=== PATIENT | female | born 1955 | race Caucasian/White ===

== ENCOUNTER 2020-03-22 14:55 | Outpatient (CLI) | payer OTHER, SELFPAY ==
--- NOTE | ~2020-03-22 | MM_ITS ---
EXAMINATION: MM screening alyce BI w beatriz HISTORY: Screening mammogram TECHNIQUE: Craniocaudal and mediolateral oblique 3-D tomosynthesis images were obtained and synthetic 2-D images were generated. CAD analysis was submitted and interpreted. COMPARISON: 10/28/2018, 05/17/2015, 05/09/2012 bilateral digital screening mammogram examinations BREAST PARENCHYMAL COMPOSITION: The breasts are heterogeneously dense, which may obscure small masses . FINDINGS: There is a biopsy marker on the left; history of prior benign left breast biopsy 7 years ag o. Stable fibroglandular asymmetry. There is no evidence of suspicious mass, calcification, or sahil ectural distortion to suggest malignancy in either breast. There has been no suspicious interval can ge. IMPRESSION: 1. No mammographic evidence of malignancy. 2. Recommend routine screening mammography in one year. BI-RADS Category 2: Benign finding(s). Reviewed, dictated and finalized at location A. [employer]
== END 2020-03-22 14:56 | disposition home or self-care (01) ==
LOC: ANHIMG 14:58
PROVIDERS: PCP Emergency Medicine; Visit Provider Emergency Medicine
DX: Z12.31 Encounter for screening mammogram for malignant neoplasm of breast (principal)
CPT/HCPCS: 77063; 77067

== ENCOUNTER 2020-12-21 12:58 | Emergency (ER) | payer OTHER, SELFPAY ==
--- NOTE | ~2020-12-21 | XR_ITS ---
XR thoracic spine 3V 12/21/2020 15:18 Indication: Degenerative disc disease. Procedure: 3 views thoracic spine Comparison: 12/01/2008 Findings: Mild dextrocurvature of the thoracic spine. Mild thoracic spondylosis. No paraspinal soft t issue abnormality. Surrounding osseous structures within normal limits. There is atherosclerosis of t he aorta. Impression: 1: Mild thoracic spondylosis with dextroscoliosis. Reviewed, dictated and finalized at location A. Impression: 1: Mild thoracic spondylosis with dextroscoliosis.
--- NOTE | ~2020-12-21 | XR_ITS ---
EXAMINATION: XR chest 2V 12/21/2020 15:18 INDICATION: Left rib pain PROCEDURE: 2 view chest COMPARISON: Comparison to multiple prior studies sequentially, with oldest reviewed study dated 12/16. FINDINGS: The lungs are clear. The lungs are hyperinflated which is consistent with, but not diagnost ic of chronic obstructive pulmonary disease. The cardiomediastinal silhouette is within normal limit s. There are no pleural effusions. There is no pneumothorax suspected. IMPRESSION: 1: NO ACUTE CARDIOPULMONARY DISEASE. Reviewed, dictated and finalized at location A.
[2020-12-21 13:09] VITALS: BP 177/88; PULSE 98; RESP 16; TEMP 36.8; O2SAT 99
[2020-12-21 14:04] VITALS: BP 185/97; PULSE 92; RESP 18; TEMP 36.8; O2SAT 100
--- NOTE | 2020-12-21 15:05 | ED.GENADULT ---
HPI - General Adult General Chief complaint: Back Pain/Injury Stated complaint: back pain Time Seen by Provider: 12/21/20 14:08 Source: patient Mode of arrival: ambulatory Limitations: no limitations History of Present Illness HPI narrative: Patient presents for evaluation of back pain. She indicates she has a history of degenerative disc disease typically takes tramadol for her pain. She normally receives quantity of 90 tramadol on a monthly basis. She ran out of medication 3 weeks ago. She now has a stabbing sharp pain in the left posterior ribs which she states is consistent with the pain experienced with degenerative disc disease in the past. She denies any cough or shortness of breath. She is requesting something for pain. No additional complaints or concerns. Related Data Home Medications Medication Instructions Recorded Confirmed atorvastatin 12/21/20 diltiazem HCl 12/21/20 hydralazine 12/21/20 losartan 12/21/20 Allergies Allergy/AdvReac Type Severity Reaction Status Date / Time No Known Allergies Allergy Verified 12/21/20 14:16 Review of Systems Review of Systems: CONSTITUTIONAL: Denies fever, chills, or sweats. EYES: Denies visual changes, redness, or discharge. ENT: Denies rhinorrhea, congestion, sore throat, or otalgia. CARDIOVASCULAR: Denies chest pain, palpitations, or edema. RESPIRATORY: Denies cough or dyspnea. GASTROINTESTINAL: Denies abdominal pain, nausea, vomiting, or diarrhea. GENITOURINARY: Denies dysuria or hematuria. SKIN: Denies rash or itching. MUSCULOSKELETAL: Reports back pain. Denies joint pain, or myalgia. NEUROLOGIC: Denies headache, numbness, dizziness, or weakness. PSYCHIATRIC: Denies anxiety or depression. [facility] Past Medical History Medical History (Updated 12/21/20 @ 16:01 by Delta Rodriguez, MARVEL, ) Degenerative disc disease Tobacco use disorder Surgical History Surgical History No pertinent past surgical history Family History Family History Sibling Diabetes mellitus Family history of kidney disease Mother Family history of kidney disease, Onset Age: 55 Father Malignant neoplasm of prostate, Onset Age: 63 Social History Social History Smoking status: Current every day smoker Additional smoking assessment comments: 6 cigarettes/day Alcohol intake: current Substance use: never Living arrangements: with family Gender identity (if verbalized by the patient): Female Sexual Orientation (if Verbalized by the Patient): Straight or Heterosexual Spiritual care concerns: No Exam Narrative: GENERAL: Well-appearing, well-nourished, and in no acute distress. HEAD: Normocephalic, atraumatic. EYES: PERRLA and EOMI. ENT: Nares clear, no rhinorrhea or epistaxis. Mucous membranes moist. Oropharynx without tonsillar hypertrophy exudate or other lesions. Bilateral TMs pearly welch nonbulging NECK: Supple. No adenopathy or masses. No carotid bruits or JVD CHEST: Clear to auscultation. No respiratory distress. No wheezes rales or rhonchi HEART: Regular rate and rhythm. No murmur heard. Normal peripheral pulses. ABDOMEN: Soft, nontender, nondistended, normal active bowel sounds. EXTREMITIES: Normal range of motion. No edema. BACK: Mild tenderness over left posterior lower ribs. No midline or paraspinous muscle tenderness in the thoracic spine SKIN: Warm, dry, no rash. NEURO: No focal deficits. Alert and oriented x3. PSYCH: Normal mood and affect. Course Course Emergency Course: This is a 65-year-old female who presented with back pain and an underlying history of degenerative disc disease. On my initial evaluation she was tender over the left posterior ribs. She does smoke so chest x-ray was obtained which was negative. X ray of thoracic s
[2020-12-21] MEDS: traMADol HCL (*CRX) 50 MG TABLET PO (15:56)
[2020-12-21 16:14] VITALS: BP 183/102; PULSE 77; RESP 16; O2SAT 92
== END 2020-12-21 16:17 | disposition home or self-care (01) ==
PROVIDERS: Emergency Provider Nurse Practitioner
DX: M51.34 Other intervertebral disc degeneration, thoracic region (principal); F17.210 Nicotine dependence, cigarettes, uncomplicated
CPT/HCPCS: 71046; 72072; 99284; A9270